=== PATIENT | female | born 1985 | race Caucasian/White ===

== ENCOUNTER 2017-05-08 09:33 | Inpatient (IN) | payer MEDICAID ==
--- NOTE | 2017-05-06 09:35 | History and Physical Report ---
History of Present Illness Date of examination: 05/06/17 Date of admission: 05/08/17 Chief complaint: cs with tl History of present illness: Pt here for scheduled repeat c/s times 4 with TL. All risk, benefits and alternatives were d/w pt and questions were addressed and answered. Consents signed and placed on the chart. Past History : 4 Term Births: 3 Living Children: 3 Para: 3 # 1 Delivery date: 04/23/2005 Weeks Gestation: 40 Delivery type: Delivery location: [place] Sex: Male weight: 6-5 Name: Orthodox Comments: PEE # 2 Delivery date: 12/05/2006 Weeks Gestation: 39 Delivery type: Delivery location: [place] Infant Sex: Male weight: 6-5 Name: Rajendra # 3 Delivery date: 01/31/2015 Weeks Gestation: 39 Delivery type: Anesthesia type: epidural Delivery location: [facility] Infant Sex: male weight: 7.25 Past Medical History: Reviewed history from 01/23/2015 and no changes required: denies Negative Past Medical History Past Surgical History: C/S x 3 Past Medical History 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 Infection History Hx of STD: none Partner hx. of genital herpes: no Rash, Viral, or Febrile illness since last LMP? no Varicella/Chicken Pox Status: Previous Disease Genetic History Congenital Heart Defect: Mom: no Dad: no Tootie Disease: Mom: no Dad: no Thalassemia Mom: no Dad: no Neural Tube Defect Mom: no Dad: no Down's Syndrome Mom: yes Dad: no Comments: uncle Brendan-Sachs Mom: no Dad: no Sickle Cell Disease/Trait Mom: no Dad: no Hemophilia Mom: no Dad: no Muscular Dystrophy Mom: no Dad: no Cystic Fibrosis Mom: no Dad: no Mariza Chorea Mom: no Dad: no Mental Retardation Mom: no Dad: no Fragile X Mom: no Dad: no Other Genetic/Chromosomal Disorder Mom: no Dad: no Child w/other defect Mom: no Dad: no Enviromental Exposures Xray Exposure: no Medication, drug, or alcohol use since LMP: no Chemical/Other Exposure: no Exposure to Cat Liter: no Hx of Parvovirus (Fifth Disease): no Occupational Exposure to Children: none Current Allergies: No known allergies Past History Past Medical History: no pertinent history 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: abnormal PAP smear Social history: no significant social history, - Obstetrical History Expected Date of Delivery: 05/15/17 Actual Gestation: 39 Week(s) 0 Day(s) : 3 Medications and Allergies Allergies Allergy/AdvReac Type Severity Reaction Status Date / Time No Known Allergies Allergy Unverified 01/31/15 09:00 Home Medications Medication Instructions Recorded Confirmed Last Taken Type Lidocain2.5%/Prilocai2.5% [Emla] 5 gm TP ONCE #1 tube 01/31/15 Unknown Rx Ibuprofen [Motrin 800 MG tab] 800 mg PO TID PRN #30 tablet 05/08/17 Unknown Rx oxyCODONE /ACETAMINOPHEN [Percocet 1 - 2 tab PO Q4HR PRN #30 tablet 05/08/17 Unknown Rx 5/325 mg] Review of Systems All systems: negative - Physical Exam Cardiovascular: Normal S1, Normal S2 Lungs: Positive: Clear to auscultation, Normal air movement Abdomen: Positive: normal appearance, soft, normal bowel sounds. Negative: distention, tenderness, guarding Genitourinary (Female): Positive: other (deferred) - Obstetrical FHR: auscultation normal Results All other labs normal. Assessment and Plan - Patient Problems (1) Admission for sterilization Status: Acute Plan to address problem: -consents signed -alternatives and risk d/w pt and all questions were addressed and answered. (2) 39 weeks gestation of Status: Acute (3) Previous section Status: Acute Plan to address problem: -to OR for repeat c/s
[~2017-05-08 09:33] MED LIST: ANCEF/STERILE WATER 2 GM/20 ML 2 GM/20 ML SYRINGE IV NR; BICITRA PO SCH; LACTATED RINGERS 1,000 ML IV SCH; PEPCID IV SCH; PITOCin/NS 20 UNIT/1000ML DRIP 20 UNITS/1,000 ML BAG IV SCH; REGLAN IV SCH
[2017-05-08 11:23] LABS: Basophils % (Auto) 0.4 % (0.0-1.8); Hematocrit 36.9 % (30.3-42.9); Mean Corpuscular HGB Conc 33 % (30-34); Mean Corpuscular Hemoglobin 28 pg (28-32); Mean Corpuscular Volume 85 fl (79-97); Platelet Count 147 K/mm3 (140-440); Red Blood Count 4.36 M/mm3 (3.65-5.03); Red Cell Distribution Width 14.4 % (13.2-15.2); White Blood Count 10.1 K/mm3 (4.5-11.0)
[2017-05-08] MEDS ORDERED: MORPHINE ONE (11:40)
[2017-05-08] MEDS ORDERED: NEO SYNEPHRINE/NS Syringe(OR USE) IV ONE (12:00)
[2017-05-08] MEDS ORDERED: NACL 0.9% 1000 ML 1,000 ML ONE (12:22)
[2017-05-08] MEDS ORDERED: NACL 0.9% IR ONE (12:30)
[2017-05-08] MEDS ORDERED: WATER FOR IRRIG STERILE IR ONE (12:30)
[2017-05-08] MEDS ORDERED: DILAUDID ONE (12:41)
[2017-05-08] MEDS ORDERED: ZOFRAN ONE (13:04)
[2017-05-08] MEDS ORDERED: MORPHINE IV PRN (13:11)
[2017-05-08] MEDS ORDERED: LANSINOH TP PRN (13:11)
[2017-05-08] MEDS ORDERED: NARCAN 0.4 MG/1 ML IV PRN ×2 (13:11→13:21)
[2017-05-08] MEDS ORDERED: NORCO 5/325 PO PRN (13:11)
[2017-05-08] MEDS ORDERED: MILK OF MAGNESIA PO PRN (13:11)
[2017-05-08] MEDS ORDERED: MYLICON PO PRN (13:11)
--- NOTE | 2017-05-08 13:11 | Operative Report ---
Operative Report Operative Report: Date of procedure: 05/08/2017 Pre-operative diagnosis: 39 weeks Previous 3 Desires permanent sterilization Post-operative diagnosis: Same Procedure name(s): Repeat lower transverse section via Pfannenstiel skin incision Bilateral tubal ligation via modified Ariana method Surgeon: Dr. Houston Auto Damage Appraiser: Ms. Zuleima Edmonds CST Anesthesia: Spinal EBL: 700 mL Urine output: 50 mL of clear urine at the end of the procedure Fluids: 700 mL Findings: Liveborn female infant weight 6 lbs. 13 oz. Apgars of 8 and 9 at one and 5 minutes Normal fallopian tubes and ovaries bilaterally Well-developed lower uterine segment Minimal abdominal adhesions Indications: Patient presents for scheduled repeat section with bilateral tubal ligation. All risk benefits and alternatives were discussed with the patient. Consents were signed and placed on the chart. Procedure: Patient was taking to the operating room. Patient was then prepped and draped in sterile fashion after anesthesia was found to be adequate. A low transverse skin incision was made with the scalpel through previous incisional scar and carried down to the underlying layer of fascia with the Bovie. The fascia was then incised in the midline and this incision was extended bilaterally with the Bovie. The superior aspect of the fascia was grasped with Reyes clamps tented upward and dissected off of the anterior rectus muscles with the scalpel. In similar fashion the inferior aspect of the fascia was grasped with Reyes clamps tented upward and dissected off of the anterior rectus muscles. The rectus muscles were then bluntly divided in the midline. The peritoneum was identified and entered into sharply. The Miguel retractor was placed A lower transverse uterine incision was made with the scalpel and extended bilaterally with the bandage scissors. Artificial rupture of membranes was performed yielding clear amniotic fluid. The infant's head was then delivered atraumatically. Nuchal cord 1 was noted and was easily reduced. The anterior shoulder and rest of delivered without difficulty. The umbilical cord was clamped x2. The cord was cut. The was then placed in sterile bassinet. The cord blood was collected The placenta was manually extracted in its entirety. The uterus was exteriorized and cleared of all clots and debris. The uterine incision was closed using 0 Vicryl in a running locking fashion. [id number] sutures were used along the incision line to secure excellent hemostasis. Attention was then turned to the fallopian tubes. The fallopian tube was grasp with the [place] clamp and suture ligated transected with the ostia bovied. This procedure was done bilaterally. Section of left and right tube were passed off for pathology. Excellent hemostasis was noted. The posterior cul-de-sac was copiously irrigated. The uterus was returned to the abdomen. The gutters were also irrigated. The anterior rectus muscles were reapproximated using 3-0 Vicryl. The anterior rectus fascia was reapproximated using 0 Vicryl in a running fashion. The subcuticular fat was reapproximated using 2-0 Vicryl in a running fashion. The skin was reapproximated with 4-0 Monocryl in a subcuticular stitch. The patient tolerated the procedure well. Sponge lap and needle counts were all correct x3. Patient was taken to the recovery room awake and in stable condition.
[2017-05-08] MEDS ORDERED: DILAUDID IV PRN (13:21)
[2017-05-08] MEDS ORDERED: ZOFRAN IV PRN (13:21)
[2017-05-08] MEDS ORDERED: BENADRYL IV PRN (13:21)
--- NOTE | 2017-05-08 13:21 | Anesthesia Day of Surgery ---
Anesthesia Day of Surgery - Day of Surgery Patient Examined: Yes Patient H&P Reviewed: Yes Patient is NPO: Yes
--- NOTE | 2017-05-08 13:21 | Anesthesia Consultation ---
Anesthesia Consult and Med Hx Date of service: 05/08/17 - Airway Anesthetic Teeth Evaluation: Good ROM Head & Neck: Adequate Mental/Hyoid Distance: Adequate Mallampati Class: Class II Intubation Access Assessment: Probably Good - Pre-Operative Health Status ASA Pre-Surgery Classification: ASA2 Proposed Anesthetic Plan: Epidural, Spinal - Pulmonary Hx Asthma: No COPD: No Hx Pneumonia: No - Cardiovascular System Hx Hypertension: No - Central Nervous System Hx Seizures: No Hx Psychiatric Problems: No - Endocrine Hx Renal Disease: No Hx End Stage Renal Disease: No Hx Hypothyroidism: No Hx Hyperthyroidism: No - Hematic Hx Anemia: No Hx Sickle Cell Disease: No - Other Systems Hx Alcohol Use: No
[2017-05-08] MEDS ORDERED: TORADOL IV PRN (13:22)
[2017-05-08] MEDS ORDERED: PITOCin/NS 20 UNIT/1000ML DRIP 20 UNITS/1,000 ML BAG IV SCH (14:00)
[2017-05-08] MEDS ORDERED: SODIUM CHLORIDE FLUSH SYRINGE 10 ML IV NR ×2 (14:00)
[2017-05-08] MEDS ORDERED: ANCEF/NS 1 GM/50 ML 1 GM/50 ML BAG IV SCH (14:00)
[2017-05-08] MEDS: TORADOL IV PRN ×2 (15:45→22:16)
[2017-05-08] MEDS: D5LR 1,000 ML IV SCH ×2 (15:46→23:08)
[2017-05-08] MEDS: ANCEF/NS 1 GM/50 ML 1 GM/50 ML BAG IV SCH (20:15)
[2017-05-09] MEDS: ANCEF/NS 1 GM/50 ML 1 GM/50 ML BAG IV SCH (04:19)
[2017-05-09] MEDS: TORADOL IV PRN (04:27)
[2017-05-09 06:25] LABS: Hemoglobin 10.1 gm/dl (10.1-14.3)
--- NOTE | 2017-05-09 10:00 | Progress Note ---
Subjective Date of service: 05/09/17 Interval history: 1st POD after Patient is in the bed, comfortable. Pain is well under control. Ambulated well. No residual neurological deficit. No anesthesia complications Objective - Constitutional Vitals: Vital Signs - 12hr 05/08/17 05/09/17 05/09/17 22:16 00:00 04:27 Temperature 98.8 F Pulse Rate [ 74 Left Brachial] Pulse Rate [ 74 Right From Monitor] Respiratory 18 18 18 Rate Blood Pressure 91/55 [Left Arm] - Labs CBC & Chem 7: 05/09/17 05:54 Labs: Abnormal lab results 05/08/17 Range/Units 10:50 [place] % (Auto) 8.4 H (0.0-7.3) % Seg Neutrophils % 72.7 H (40.0-70.0) %
[2017-05-09] MEDS: MOTRIN PO PRN ×2 (11:15→17:58)
[2017-05-09] MEDS: FEOSOL PO SCH (11:15)
--- NOTE | 2017-05-09 12:46 | Progress Note ---
Assessment and Plan - Patient Problems (1) Delivered by section Current Visit: Yes Status: Acute Plan to address problem: Postoperative day #1. Discuss operative findings with patient and questions answered. Patient without fever. We'll ambulate in halls. We will continue routine postoperative care. Patient's postoperative hematocrit is 31% Subjective - Subjective Date of service: 05/09/17 Patient reports: appetite normal, voiding normally, pain well controlled, flatus : doing well, nursing well Objective - Vital Signs Latest vital signs: Vital Signs Temp Pulse Pulse Pulse Resp BP BP 05/09/17 08:30 97.8 F 73 18 93/48 05/09/17 04:27 18 05/09/17 00:00 98.8 F 74 74 18 91/55 05/08/17 22:16 18 05/08/17 20:00 98.3 F 64 64 18 107/60 05/08/17 16:55 97.6 F 69 18 94/50 05/08/17 14:30 97.6 F 60 18 103/57 05/08/17 14:10 97.5 F L 05/08/17 14:02 97.4 F L 05/08/17 14:00 55 L 12 105/62 05/08/17 13:45 59 L 15 103/53 05/08/17 13:30 54 L 17 97/55 05/08/17 13:25 58 L 17 104/51 05/08/17 13:20 62 16 106/57 05/08/17 13:15 57 L 18 99/51 05/08/17 13:10 97.8 F 65 17 97/49 05/08/17 13:07 59 L 10 L Pulse Ox 05/09/17 08:30 05/09/17 04:27 05/09/17 00:00 05/08/17 22:16 05/08/17 20:00 05/08/17 16:55 05/08/17 14:30 05/08/17 14:10 05/08/17 14:02 05/08/17 14:00 99 05/08/17 13:45 100 05/08/17 13:30 100 05/08/17 13:25 100 05/08/17 13:20 100 05/08/17 13:15 100 05/08/17 13:10 99 05/08/17 13:07 100 Intake and Output 05/08/17 05/09/17 05/09/17 22:59 06:59 14:59 Intake Total 50 1600 320 Output Total 1200 Balance 50 400 320 Intake: IV 50 1000 ANCEF/NS 1 GM/50 ML 1 gm 50 In 50 ml @ 100 mls/hr IV Q8H AIDAN Rx#:[id number] 1,000 ml @ 125 mls/ 1000 hr IV DIRECT AIDAN Rx#: [id number] Oral 600 320 Output: Urine 1200 Indwelling Catheter 1200 Other: Total, Intake Amount 600 320 Total, Output Amount 1200 Voiding Method Toilet # Voids Indwelling Catheter 1 Void 3 1 - Exam Breasts: Present: deferred Cardiovascular: Present: Regular rate Lungs: Present: Normal air movement Abdomen: Present: normal appearance, soft, normal bowel sounds Uterus: Present: firm, fundal height below umbilicus Extremities: Present: normal, edema Incision: Present: dressed
[2017-05-09] MEDS ORDERED: BOOSTRIX IM ONE (13:12)
[2017-05-09] MEDS: NORCO 5/325 PO PRN ×2 (15:48→22:42)
[2017-05-10] MEDS: MOTRIN PO PRN ×2 (03:49→09:51)
[2017-05-10] MEDS: NORCO 5/325 PO PRN ×2 (05:22→12:30)
[2017-05-10] MEDS ORDERED: BOOSTRIX IM ONE (06:00)
[2017-05-10] MEDS: FEOSOL PO SCH (09:47)
--- NOTE | 2017-05-10 12:30 | Discharge Summary ---
Providers - Providers Date of Admission: 05/08/17 09:33 Date of discharge: 05/10/17 Attending physician: JOCELIN BINGHAM Primary care physician: JOCELIN BINGHAM Hospitalization Reason for admission: section Delivery: Procedure: section Procedure details: See operative note Episiotomy: none Laceration: none Incision: normal, dry, intact Other procedures: none complications: none Discharge diagnosis: IUP at term delivered [place] baby: female Hospital course: Patient was admitted and underwent above procedure without complications. Her post operative course was benign she was afebrile throughout. Patient postoperative day 1 hematocrit was in an acceptable range. Patient had no orthostatic symptoms. Patient was tolerating regular diet and voiding without difficulty at time of discharge. Patient incision was healing well without evidence of infection. Condition at discharge: Good Disposition: DC-01 TO HOME OR SELFCARE - Discharge Diagnoses (1) Delivered by section Status: Acute Plan - Discharge Medications Prescriptions: Ibuprofen [Motrin 800 MG tab] 800 mg PO TID PRN #30 tablet PRN Reason: Pain oxyCODONE /ACETAMINOPHEN [Percocet 5/325 mg] 1 - 2 tab PO Q4HR PRN #30 tablet PRN Reason: Pain - Provider Discharge Summary Activity: routine, no sex for 6 weeks, no heavy lifting 4 weeks, no strenuous exercise Diet: routine Instructions: routine Additional instructions: [] Smoking cessation referral if applicable(refer to patient education folder for contact #) [] Refer to [facility]'s [facility] Booklet Call your doctor immediately for: * Fever > 100.5 * Heavy vaginal bleeding ( >1 pad per hour) * Severe persistent headache * Shortness of breath * Reddened, hot, painful area to leg or breast * Drainage or odor from incision. * Keep incision clean and dry at all times and follow doctor's instructions regarding bathing/showering Patient office for fever chills nausea vomiting or pain uncontrolled by pain relief. Patient instructed no heavy lifting 6 weeks. No sex for 6 weeks. - Follow up plan Follow up: JOCELIN BINGHAM MD [Primary Care Provider] - 7 Days
[2017-05-10 14:25] VITALS: BP 110/52
== END 2017-05-10 13:30 | disposition home or self-care (01) | DRG 766 ==
LOC: APU 09:33 → OB 14:36
PROVIDERS: ADMIT Obstetrics & Gynecology; ATTEND Obstetrics & Gynecology
PROC: 10D00Z1 Extraction of Products of Conception, Low, Open Approach (ICD-10-PCS; principal; 2017-05-08)
PROC: 0UL70ZZ Occlusion of Bilateral Fallopian Tubes, Open Approach (ICD-10-PCS; 2017-05-08)
DX: O34.211 Maternal care for low transverse scar from previous cesarean delivery (principal); O69.81X0 Labor and delivery complicated by cord around neck, without compression, not applicable or unspecified; Z3A.39 39 weeks gestation of pregnancy; Z37.0 Single live birth
CPT/HCPCS: 36415; 85014; 85018; 85025; 86850; 86900; 86901; 88302; 90471; 90715; 99211; C9250; G0463; J0690; J1170; J1885; J2270; J2370; J2405; J2590; J2765; J7030; J7120; J7121